=== PATIENT | female | born 2000 | race African-American/Black ===

== ENCOUNTER 2021-05-09 03:55 | Inpatient (IN) ==
[2021-05-09] MEDS ORDERED: ONDANSETRON 4 MG/2 ML VIAL IV PRN (04:03)
[2021-05-09] MEDS ORDERED: BUTORPHANOL 2 MG/ML VIAL IV PRN (04:03)
[2021-05-09] MEDS ORDERED: LACTATED RINGERS 500 ML IV PRN (04:03)
[2021-05-09] MEDS ORDERED: MEPERIDINE 50 MG/1 ML VIAL IM PRN ×2 (04:03→04:18)
[2021-05-09] MEDS ORDERED: AMPICILLIN INJ 2,000 MG in SODIUM CHLORIDE 0.9% 100 ML IV ONE (04:45)
[2021-05-09] MEDS: LACTATED RINGERS 1,000 ML IV SCH ×3 (05:14→17:18)
[2021-05-09 05:20] LABS: Basophils # 0.1 10*3/uL (0.0-0.2); Basophils % 0.6 % (0.0-0.8); Eosinophils # 0.6 10*3/uL (0.0-0.87); Eosinophils % 7.2 % (0.00-10.9); Hematocrit 31.8 VOL% (35.7-47.0); Hemoglobin 10.6 GM/DL (12.0-16.0); Immature Granulocytes % 0.5 %; Immature Granulocytes Absolute 0.04 #; Lymphocytes # 1.7 10*3/uL (1.4-4.0); Lymphocytes % 20.9 % (21.3-54.2); Mean Corpuscular HGB Conc 33.3 GM/DL (32-36); Mean Corpuscular Volume 95.2 FL (87-102); Mean Platelet Volume 10.9 FL (9.6-12.0); Monocytes % 10.2 % (1.7-12.7); Neutrophils % 60.6 % (38.7-73.9); Platelet Count 181 T/CUMM (130-400); Red Blood Count 3.34 MC/CUMM (3.8-5.5); Red Cell Distribution Width 12.9 % (9.3-17.3)
[2021-05-09 05:43] LABS: Alanine Aminotransferase < 6 U/L (13-56); Albumin 2.5 G/DL (3.4-5.0); Alkaline Phosphatase 141 U/L (45-117); Aspartate Amino Transferase 15 U/L (0-37); Bilirubin,Total < 0.39 MG/DL (0.20-1.00); Blood Urea Nitrogen 8 MG/DL (7-18); Calcium 8.6 MG/DL (8.5-10.1); Carbon Dioxide 23 MMOL/L (21-32); Estimated Glom Filtration Rate 192 ML/MIN; Glucose 70 MG/DL (74-106); Osmolality,Calculated 268.8 MOS/KG (273-304); Potassium 3.6 MMOL/L (3.5-5.1); Sodium 137 MMOL/L (136-145); Total Protein 6.2 G/DL (6.4-8.2)
[2021-05-09] MEDS: AMPICILLIN INJ 1,000 MG in SODIUM CHLORIDE 0.9% 100 ML IV SCH ×4 (09:17→21:30)
[2021-05-09] MEDS ORDERED: MEPERIDINE 50 MG/1 ML VIAL IV PRN (13:37)
[2021-05-09] MEDS ORDERED: OXYTOCIN/LR 20 UNIT/1,000 ML BAG IV SCH (14:00)
[2021-05-09 14:06] LABS: INR 0.9; PT Patient Result 10.4 SECS (10.5-12.0); Partial Thromboplastin Time 31.2 SECS (23.8-32.1)
[2021-05-09] MEDS ORDERED: NIFEdipine 10 MG CAPSULE PO ONE (15:27)
[2021-05-09] MEDS ORDERED: diphenhydrAMINE 50 MG/1 ML VIAL IV PRN ×2 (16:18)
[2021-05-09] MEDS ORDERED: LACTATED RINGERS 1,000 ML IV ONE (16:18)
[2021-05-09] MEDS ORDERED: FAMOTIDINE 20 MG/2 ML VIAL IV ONE (16:18)
[2021-05-09] MEDS ORDERED: PROMETHAZINE 25 MG/1 ML VIAL IM ONE (16:18)
[2021-05-09] MEDS ORDERED: ePHEDrine 50 MG/ML VIAL IV PRN (16:18)
[2021-05-09] MEDS ORDERED: CITRIC ACID/SODIUM CITRATE 30 ML UDCUP PO ONE (16:18)
[2021-05-09] MEDS ORDERED: NALOXONE 0.4 MG/ML VIAL IV PRN (16:18)
[2021-05-09] MEDS ORDERED: hydrOXYzine HCL 25 MG/1 ML VIAL IM PRN (16:18)
[2021-05-09] MEDS ORDERED: LACTATED RINGERS 1,000 ML IV SCH ×2 (16:30)
[2021-05-09] MEDS ORDERED: fentaNYL 2 MCG/ROPIV 0.2% EPID 100 ML EPIDURAL SCH (16:30)
[2021-05-09 19:34] LABS: Protein,Urine Negative (Negative); Urine Appearance Clear (Clear); Urine Color Light Yellow (Yellow)
[2021-05-09 19:35] LABS: Bilirubin,Urine Negative (Negative); Blood, Urine Negative (Negative); Glucose,Urine (UA) Negative (Negative); Ketones,Urine 40 mg/dL (Negative); Nitrite,Urine Negative (Negative); Urine Urobilinogen < 2.0 eU/dL (<2.0)
[2021-05-10] MEDS ORDERED: miSOPROStoL 200 MCG TABLET ONE (01:08)
[2021-05-10] MEDS ORDERED: SODIUM CHLORIDE 0.9% 0 ML IV ONE (01:09)
[2021-05-10] MEDS ORDERED: TRANEXAMIC ACID 1,000 MG/10 ML VIAL ONE (01:09)
[2021-05-10] MEDS ORDERED: OXYTOCIN/LR 0 UNIT/0 ML BAG IV ONE (01:09)
[2021-05-10] MEDS ORDERED: METHYLERGONOVINE 0.2 MG/1 ML AMP ONE (01:09)
[2021-05-10] MEDS ORDERED: CARBOPROST TROMETHAMINE 250 MCG/ML AMP IM ONE (01:10)
[2021-05-10 01:50] LABS: Cord Venous Blood HCO3 22.3 MMOL/L; Cord Venous Blood PCO2 48.6 MMHG; Cord Venous Blood PO2 30.1
[2021-05-10] MEDS ORDERED: IBUPROFEN 800 MG TABLET PO ONE (03:36)
[2021-05-10] MEDS ORDERED: BISACODYL 10 MG SUPP RECTAL PRN (05:05)
[2021-05-10] MEDS ORDERED: oxyCODONE/ACETAMINOPHEN 5-325 MG TABLET PO PRN ×2 (05:05)
[2021-05-10] MEDS ORDERED: LANOLIN 50% CREAM 0.3 OZ TUBE TOP PRN (05:05)
[2021-05-10] MEDS ORDERED: RHO(D) IMMUNE GLOBULIN 300 MCG SYRINGE IM ONE (05:05)
[2021-05-10] MEDS ORDERED: DIPH/TET/ACEL PERT BOOSTER VACCINE 0.5 ML VIAL IM ONE (05:05)
[2021-05-10] MEDS ORDERED: OXYTOCIN/LR 20 UNIT/1,000 ML BAG IV ONE (05:05)
[2021-05-10] MEDS ORDERED: HYDROCORTISONE 2.5% RECTAL CREAM 30 GM TUBE TOP PRN (05:05)
[2021-05-10] MEDS ORDERED: BENZOCAINE 20%/MENTHOL 0.5% SPRAY 56 GM CAN TOP PRN (05:05)
[2021-05-10] MEDS ORDERED: WITCH HAZEL PADS 100/JAR TOP PRN (05:05)
[2021-05-10] MEDS ORDERED: MEASLES/MUMPS/RUBELLA VACCINE 0.5 ML VIAL SUBCUT ONE (05:05)
[2021-05-10] MEDS ORDERED: ACETAMINOPHEN 325 MG TABLET PO PRN (05:05)
[2021-05-10] MEDS: MULTIVITAMIN (PRENATAL) TABLET PO SCH (08:59)
[2021-05-10] MEDS: DOCUSATE SODIUM 100 MG CAPSULE PO SCH ×2 (08:59→20:40)
[2021-05-10] MEDS: IBUPROFEN 800 MG TABLET PO PRN (16:39)
[2021-05-11] MEDS: IBUPROFEN 800 MG TABLET PO PRN (04:29)
[2021-05-11 06:09] LABS: Basophils # 0.1 10*3/uL (0.0-0.2); Basophils % 0.7 % (0.0-0.8); Eosinophils # 0.6 10*3/uL (0.0-0.87); Eosinophils % 6.2 % (0.00-10.9); Hematocrit 28.6 VOL% (35.7-47.0); Hemoglobin 9.5 GM/DL (12.0-16.0); Immature Granulocytes % 0.4 %; Immature Granulocytes Absolute 0.04 #; Lymphocytes # 2.2 10*3/uL (1.4-4.0); Mean Corpuscular HGB Conc 33.2 GM/DL (32-36); Mean Platelet Volume 12.1 FL (9.6-12.0); Monocytes % 10.6 % (1.7-12.7); Neutrophils % 58.1 % (38.7-73.9); Platelet Count 163 T/CUMM (130-400); Red Blood Count 2.89 MC/CUMM (3.8-5.5); Red Cell Distribution Width 12.9 % (9.3-17.3); White Blood Count 9.2 T/CUMM (4-12)
[2021-05-11] MEDS ORDERED: DIPH/TET/ACEL PERT BOOSTER VACCINE 0.5 ML VIAL IM ONE (08:06)
[2021-05-11] MEDS: DOCUSATE SODIUM 100 MG CAPSULE PO SCH ×2 (08:13→21:54)
[2021-05-11] MEDS: MULTIVITAMIN (PRENATAL) TABLET PO SCH (08:13)
[2021-05-12 07:28] VITALS: BP 139/83
[2021-05-12] MEDS: DOCUSATE SODIUM 100 MG CAPSULE PO SCH (08:40)
[2021-05-12] MEDS: MULTIVITAMIN (PRENATAL) TABLET PO SCH (08:40)
[2021-05-12] MEDS ORDERED: DIPH/TET/ACEL PERT BOOSTER VACCINE 0.5 ML VIAL IM ONE (12:04)
== END 2021-05-12 13:55 | disposition home or self-care (01) | DRG 807 ==
LOC: N.LD 03:55 → N.OB 05-10 05:03
PROVIDERS: ADMIT Obstetrics & Gynecology; ATTEND Obstetrics & Gynecology